=== PATIENT | male | born 1960 | race Caucasian/White ===

== ENCOUNTER → 2017-07-14 | Day surgery (SDC) | payer OTHER ==
[~2017-07-14] MED LIST: ASPI81 PO; ATOR10 PO; GLUCTAB OR; LEVO100T4 PO; LORT5TAB PO; MICA40TA PO; PROPOFOL 200 MG/20 ML AMP IV ONE; TUMS500C PO
--- NOTE | 2017-07-14 11:30 | GIPROC ---
[facility] [address] [facility], [address] COLONOSCOPY PROCEDURE REPORT EXAM DATE: 07/14/2017 PATIENT NAME: Patrice Gonzales MR #: [id number] BIRTHDATE: 1960 ENDOSCOPIST: John Dai MD ORDER #: [id number] LIBRARY HISTORIAN: Moses Do RN STATUS: outpatient INDICATIONS: The patient is a 57 yr old male here for a colonoscopy due to average risk patient for colon cancer PROCEDURE PERFORMED: Colonoscopy with polypectomy MEDICATIONS: None and Per Anesthesia. PREP QUALITY: good ESTIMATED BLOOD LOSS: None CONSENT: The patient understands the risks and benefits of the procedure and understands that these risks include, but are not limited to: sedation, allergic reaction, infection, perforation and/or bleeding. Alternative means of evaluation and treatment include, among others: physical exam, x-rays, and/or surgical intervention. The patient elects to proceed with this endoscopic procedure. medical equipment was checked for proper function. Hand hygiene and appropriate measures for infection prevention was taken. After the risks, benefits and alternatives of the procedure were thoroughly explained, Informed consent was verified, confirmed and timeout was successfully executed by the treatment team. A digital exam revealed no abnormalities of the rectum The EC-[id number] ([id number]) endoscope was introduced through the anus and advanced to the cecum, which was identified by both the appendix and ileocecal valve. The instrument was then slowly withdrawn as the colon was fully examined. COLON FINDINGS: Two medium sized smooth sessile polyps were found in the proximal transverse colon and sigmoid colon. A polypectomy was performed with a cold snare. The resection was complete and the polyp tissue was completely retrieved. The colon mucosa was otherwise normal. Retroflexed views revealed no abnormalities The scope was then completely withdrawn from the patient and the procedure terminated. PROCEDURE WITHDRAWAL TIME:12.1minutes ADVERSE EVENTS: There were no complications. IMPRESSIONS: 1. Two medium sized sessile polyps were found in the proximal transverse colon and sigmoid colon; polypectomy was performed with a cold snare 2. The colon mucosa was otherwise normal 3. Retroflexed views revealed no abnormalities 4. Revealed no abnormalities of the rectum RECOMMENDATIONS: 1. Await biopsy results. Biopsy results will not be ready for 7-10 days. If you don't hear from us in two weeks, call our office for results. 2. High fiber diet 3. Yearly hemoccult 4. Follow-up: GI Clinic PRN RECALL: Return 5 years Colonoscopy John Dai MD eSigned: John Dai MD 07/14/2017 11:29 AM cc: Phu Dukes M.D and [facility]
== END | disposition home or self-care (01) ==
LOC: ESDC 09:29
PROVIDERS: ATTEND Internal Medicine Gastroenterology
DX: Z12.11 Encounter for screening for malignant neoplasm of colon (principal); D12.5 Benign neoplasm of sigmoid colon; D12.3 Benign neoplasm of transverse colon
CPT/HCPCS: 88305